=== PATIENT | female | born 2000 | race Caucasian/White ===

== ENCOUNTER → 2023-06-27 | Outpatient (REF) | payer BC, SELFPAY | LOC: DHSLP | PROVIDERS: ATTENDING PHYSICIAN Internal Medicine Cardiovascular Disease | DX: G47.33 Obstructive sleep apnea (adult) (pediatric) (principal) | CPT/HCPCS: 95800 ==

== ENCOUNTER → 2023-10-21 14:54 | Outpatient (REF) | payer BC, SELFPAY | LOC: HWRCS 14:54 | PROVIDERS: ATTENDING PHYSICIAN Internal Medicine Cardiovascular Disease; FAMILY PHYSICIAN Internal Medicine | DX: R06.09 Other forms of dyspnea (principal) | CPT/HCPCS: 93306 ==

== ENCOUNTER 2024-10-20 11:18 | Emergency (ER) | payer BC, OTHER, SELFPAY ==
[2024-10-20 11:19] VITALS: BP 143/87
--- NOTE | 2024-10-20 12:14 | ED.SKININJ ---
HPI-Injury
General
Chief Complaint: Skin Surface Trauma
Source: patient
Exam Limitations: none
Time Seen by Provider: 10/20/24 11:31
Nursing documentation reviewed up to this point in time: agreed with
History of Present Illness-Injury
Initial Injury comments:
24 yo female w h/o Type 1 DM, psoriatic arthritis, migraines, anxiety/depression presents complaint of severe itching that began 2 nights ago. The itching initially started on her buttocks but has since spread to other areas, including under her
breasts, groin, genitals, and folds of the skin. The patient reports that the itch is so severe that it disrupts her sleep. She denies any recent changes in soaps, detergents. In past 2 weeks started Trazadone prn (has hod total 2 doses) and
Ubrelvy prn (has had 4 doses, last one 2 days ago). She has been on the medication Wagovi for past 6 mos, which she uses every one to two weeks, which causes nausea and vomiting, her last dose 4 days ago after which she experienced more nausea and
vomiting than usual, followed by the onset of itching. She has tried hydrocortisone cream, Benadryl, and received an injection of Decadron at urgent care yesterday, but none have significantly relieved her symptoms. She took a Pepcid and Zyrtec just
FORMING [employer] as this has worked for her in the past with a similar episode. She does not think this is her psoriasis itch.
Past History
Past History
ED Past Medical History: Other (Recurrent staph infections skin, psoriatic arthritis, insulin-dependent diabetes, migraines)
ED Past Surgical History: None
Social History
Tobacco: Non-smoker
Alcohol: Occasional
Personal: Single
Living: with family
Employment: Employed
Review of Systems
Review of Systems
Allergies reviewed?: Yes
All Other Systems: ROS reviewed and negative except as documented in HPI and ROS
Constitutional: Denies fever
EENT: Denies sore throat or mouth swelling
Respiratory: Denies trouble breathing
Cardiac: Denies chest pain
ABD/GI: Denies abdominal pain, nausea or vomiting
: Denies dysuria, frequency or difficulty voiding
Musculoskeletal: Reports no symptoms
Skin: Reports itching and rash
Phy Exam
Physical Exam
Physical Exam:
GENERAL: No acute distress. A&Ox3.
CONSTITUTIONAL: Afebrile.
EYES: clear, conjunctivae normal
ENMT: moist mucus membranes, Pharynx nl
RESPIRATORY: Regular respirations, nonlabored, lungs clear.
CARDIOVASCULAR: Regular rate and rhythm, no murmurs, no rubs.
GI: Soft, nontender, normal BS
MUSCULOSKELETAL: Moves with ease. Well perfused.
SKIN: Warm, dry, pink. Darkened plaques under and between breasts and folds of buttocks, pannus, consistent with psoriatic plaques. Scattered rash over both buttock cheeks,
PSYCH: Normal mood and affect. Well kept, interactive and appropriate
NEUROLOGIC: Awake, alert and oriented. No focal neurological deficits
Course
Orders/Labs/Results
Orders:
Orders
10/20/24 12:42
Complete Blood Count/With Diff Urgent
Comprehensive Metabolic Panel Urgent
TSH Reflex To Free T4 Urgent
Comment: ADD ON
10/20/24 12:51
Add On- LAB Urgent
Tests Added?: TSH reflex T4
Abnormal Lab Results
10/20/24
12:42
WBC 12.9 H 10^3/uL
(4.8-10.8)
RBC 3.99 L 10^6/uL
(4.20-5.40)
MCH 32.6 H pg
(27.0-31.0)
MPV 10.9 H fL
(7.4-10.4)
Absolute Neuts (auto) 7.3 H 10^3/uL
(1.4-6.5)
Absolute Lymphs (auto) 4.5 H 10^3/uL
(1.2-3.4)
Absolute Monos (auto) 0.9 H 10^3/uL
(0.1-0.6)
Glucose 137 H mg/dl
(70-99)
Calcium 10.3 H mg/dl
(8.4-10.2)
10/20/24 12:42
10/20/24 12:42
Vital Signs
Initial and Last Documented VS:
Initial Vital Signs
Temp Pulse Resp BP Pulse Ox
98.8 F 94 18 143/87 96
10/20/24 11:19 10/20/24 11:19 10/20/24 11:19 10/20/24 11:19 10/20/24 11:19
Last Documented Vital Signs
Temp Pulse Resp BP Pulse Ox
98.8 F 94 18 143/87 96
10/20/24 11:19 10/20/24 11:19 10/20/24 11:19 10/20/24 11:19 10/20/24 12:15
MDM/Problems Addressed
Differential Diagnosis Includes:
Hypersensitivity to medication, allergic reaction medication, fungal infection, urticaria, psoriasis exacerbation, liver disease
MDM/Problems Addressed:
24 yo female w h/o Type 1 DM, psoriatic arthritis, migraines, anxiety/depression presents complaint of severe itching that began 2 nights ago. The itching initially started on her buttocks but has since spread to other areas, including under her
breasts, groin, genitals, and folds of the skin. The patient reports that the itch is so severe that it disrupts her sleep. She denies any recent changes in soaps, detergents. In past 2 weeks started Trazadone prn (has hod total 2 doses) and
Ubrelvy prn (has had 4 doses, last one 2 days ago). She has been on the medication Wagovi for past 6 mos, which she uses every one to two weeks, which causes nausea and vomiting, her last dose 4 days ago after which she experienced more nausea and
vomiting than usual, followed by the onset of itching. She has tried hydrocortisone cream, Benadryl, and received an injection of Decadron at urgent care yesterday, but none have significantly relieved her symptoms. She took a Pepcid and Zyrtec just
FORMING [employer] as this has worked for her in the past with a similar episode. She does not think this is her psoriasis itch.
UpToDate: Derm side effect of Wagovi: 3% skin rash, urticaria, Trazodone <1% itching, Ubrelvy possible hypersensitivity of pruritius, rash, urticaria
Pt and mother aware of these poss SE
No sign of serious SEs.
Her last blood work was 3 months ago.
Plan: check basic labs, continue Pepcid, Zyrtec, Hydrocortisone cream, asking for Prednisone, due to her DM, will prescribe 40 mg daily x 2 days, she is vigilant with her blood sugar checks and has sliding scale. BS now 113. 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
Dr. Velasco, encouraged to make appointment if not improving.
She will speak to her providers about poss SE of medications.
CBC CMP unremarkable (mild leukocytosis from steroids)
*Pulse Oximetry
SaO2: 96
Oxygen Mode of Delivery: Room air
Patient hypoxic: not evaluated
*Critical Care Note
Total Time (30-74mins, 75-104mins- exclusive of procedures): Not Applicable
ED Attending Note
-
Portions of this chart may have been created with voice recognition software.� Occasional wrong word or��sound alike� substitutions may have occurred due to the inherent limitations of voice recognition software.
Discharge Plan
Departure
Patient Disposition: Home (Routine Discharge)
Date of Disposition: 10/20/24
Time of Disposition: 13:19
Patient with high blood pressure during this ER visit?: No
Condition: Fair
Discharge Problem:
Itchy skin
Instructions: Itchy skin
Prescriptions:
New
prednisone 20 mg tablet
40 mg PO DAILY Qty: 4 0RF
No Action
sulfasalazine 500 MG tablet
1,500 mg PO BID
promethazine 25 mg tablet
25 mg PO Q6H PRN (Reason: nausea and vomiting) Qty: 10 0RF
atorvastatin 40 mg tablet
40 mg PO DAILY
ondansetron 8 mg tablet,disintegrating
8 mg translingual Q8HPRN PRN (Reason: NAUSEA)
levothyroxine 50 mcg tablet
50 mcg PO DAILY
insulin lispro 100 unit/mL solution
1 unit continuous subcutaneous infusion DIRECTED
Simponi ARIA 12.5 mg/mL Solution
1 mg IV Q8W
hydroxyzine pamoate 25 mg capsule
25 mg PO TIDPRN PRN (Reason: ANXIETY)
trazodone 50 mg tablet
50 mg PO HSPRN PRN (Reason: sleep/mental health)
alprazolam 1 mg Tablet
1 mg PO DAILYPRN PRN (Reason: ANXIETY)
Patient Comments:
10/20/24: 30 tabs filled 02/19/24
rizatriptan 10 mg tablet
10 mg PO BIDPRN PRN (Reason: migraine)
propranolol 60 mg capsule,extended release 24 hr
60 mg PO HS
bupropion HCl 300 mg tablet extended release 24 hr
300 mg PO DAILY
Rx Instructions:
total 450 mg
bupropion HCl 150 mg tablet extended release 24 hr
150 mg PO DAILY
Rx Instructions:
total 450 mg
Emgality Pen 120 mg/mL pen injector
120 mg SC MONTHLY
Ubrelvy 100 mg tablet
100 mg PO BIDPRN PRN (Reason: migraine)
Wegovy 0.25 mg/0.5 mL pen injector
0.25 mg SC WEEKLY
norethindrone-e.estradiol-iron [Ivanna Fe 1.5/30 (28)] 1.5 mg-30 mcg (21)/75 mg (7) tablet
1 tab PO DAILY
Referrals:
Troy Chau MD [Family Provider, Internal Medicine] - Follow up in 1 week
Activity Restrictions/Additional Instructions:
Zyrtec 10 mg daily, may increase to twice daily if no relief in 2-3 days.
Hydroxyzine 25 mg 3-4 times a day as needed for itching for next week. Can make you sleepy so no driving or operating any machinery within 6 hours of taking
Pepcid 20 mg twice daily for up to 2 weeks. Stop if not helping by then.
Prednisone 40 mg a day for 2 days. Check your blood sugars frequently over next 3 days and cover yourself with Insulin as needed.
Make appointment with your hydroelectric systems technician
Discuss with your doctor's possible side effects of medications.
Interventions
Interventions:
*Risk Screen - Suicide Last Done: 10/20/24 11:19
*General Assessment Last Done: 10/20/24 11:19
*Neglect/Abuse Screening Last Done: 10/20/24 12:53
*Nursing Disposition Last Done: 10/20/24 13:27
ED-Skin Assessment Last Done: 10/20/24 12:53
Discharge Date and Time
Discharge Date/Time: 10/20/24 13:27
Print Language: AMERICAN
[2024-10-20 12:56] LABS: Hematocrit 38.7 % (37.0-47.0); Hemoglobin 13.0 g/dL (12.0-16.0); Mean Corp Hgb Conc. 33.6 g/dL (33.0-37.0); Mean Corpuscular Volume 97.0 fL (81.0-99.0); Nucleated Red Blood Cells % 0 %; Platelet Count 318 10^3/uL (130-400); Red Cell Dist. Width 11.9 % (11.5-14.5)
[2024-10-20 13:14] LABS: ALT (SGPT) 15 U/L (0-35); AST (SGOT) 18 U/L (14-36); Albumin 4.5 g/dl (3.5-5.0); Alkaline Phosphatase 56 U/L (38-126); Blood Urea Nitrogen 12 mg/dl (7-17); Calcium 10.3 mg/dl (8.4-10.2); Carbon Dioxide 25 mmol/L (22-30); Chloride 102 mmol/L (98-107); Glucose 137 mg/dl (70-99); Potassium 4.1 mmol/L (3.5-5.1); Sodium 137 mmol/L (135-145); Total Protein 7.5 g/dl (6.3-8.2); eGFR > 60.00
== END 2024-10-20 13:27 | disposition home or self-care (01) ==
LOC: EMR 11:18
PROVIDERS: Registered Nurse; EMERGENCY PHYSICIAN Emergency Medicine; FAMILY PHYSICIAN Internal Medicine
DX: L29.9 Pruritus, unspecified (principal); D72.829 Elevated white blood cell count, unspecified; E10.9 Type 1 diabetes mellitus without complications; L40.50 Arthropathic psoriasis, unspecified; F41.9 Anxiety disorder, unspecified; F32.A Depression, unspecified; Z79.4 Long term (current) use of insulin
CPT/HCPCS: 99283; 80053; 84443; 85025